=== PATIENT | male | born 1960 | race Caucasian/White ===

== ENCOUNTER 2020-07-15 15:34 | Emergency (ER) | payer OTHER ==
[~2020-07-15] VITALS: Ht 193 cm; Wt 152.0 kg
[2020-07-15] MEDS ORDERED: LISINOPRIL10 MG PO (16:02)
[2020-07-15] MEDS ORDERED: METFORMIN HCL500 M3 PO (16:02)
[2020-07-15] MEDS ORDERED: GLIPIZIDE ER2.5 MG PO (16:02)
[2020-07-15] MEDS ORDERED: CHILDREN'S ASPI81 M1 PO (16:04)
[2020-07-15] MEDS ORDERED: CPAP MISCELL (16:04)
[2020-07-15] MEDS ORDERED: EMERGEN-C 500500 MG PO (16:04)
[2020-07-15] MEDS ORDERED: TESTOSTERONE100 MG SUBQ (16:04)
[2020-07-15] MEDS ORDERED: VITAMIN D3100 MCG PO (16:05)
[2020-07-15 16:12] LABS: ABSOLUTE NEUTROPHILS 4.5 thou/uL (1.4-8.2); BASOPHILS 0.7 % (0.0-2.0); EOSINOPHILS 2.3 % (0.0-3.0); HEMATOCRIT 43.8 % (42.0-52.0); HEMOGLOBIN 15.2 gm/dL (14.0-18.0); LYMPHOCYTES 33.7 % (24.0-44.0); MCH 33.4 pg (26.0-34.0); MCHC 34.6 g/dL (28.0-37.0); MCV 96.4 fL (80.0-100.0); MONOCYTES 7.4 % (1.0-8.0); PLATELET COUNT 205 thou/uL (150-400); POLYS 55.9 % (36.0-66.0); RBC 4.54 mil/uL (4.50-6.00); RDW 13.8 % (10.5-14.5)
[2020-07-15 16:25] LABS: ANION GAP 14 mmol/L (7-16); BUN 19 mg/dL (7-18); CHLORIDE 102 mmol/L (98-107); CO2 24 mmol/L (21-32); CREATININE 1.4 mg/dL (0.7-1.3); GLUCOSE 311 mg/dL (74-106); POTASSIUM 4.2 mmol/L (3.5-5.1); SODIUM 140 mmol/L (136-145)
[2020-07-15 16:34] LABS: ALBUMIN 3.9 g/dL (3.4-5.0); DIRECT BILIRUBIN < 0.1 mg/dL (<0.1-0.2); SGOT 36 U/L (15-37); SGPT 64 U/L (30-65); TOTAL BILIRUBIN 0.4 mg/dL (0.2-1.0); TOTAL PROTEIN 7.2 g/dL (6.4-8.2); TROPONIN-I <0.06 ng/mL (<0.06)
[2020-07-15] MEDS ORDERED: TOPROL XL25 MG PO (17:37)
[2020-07-15 17:57] VITALS: BP 132/76
--- NOTE | 2020-07-16 07:11 | EKG ---
[place] [address] [facility] [place] [address] ELECTROCARDIOGRAM REPORT Name: MIRNA MOON Room [facility]: [facility] [id number] Admission: 07/15/20 Attend Phys: Discharge: 07/15/20 Date of : 56 Report #: [id number] [facility] ED Test Date: 2020-07-15 Test Time: 15:49:45 Pat Name: MIRNA MOON Department: Room: Gender: M Entry Level Electrician: RUTH : 1960 Requested By: Rut Mensah Order Number: [id number] MD: Bull Zepeda Measurements Intervals [place] Rate: 174 P: 0 CO: QRS: -6 QRSD: 86 T: -5 QT: 287 QTc: 489 Interpretive Statements Supraventricular tachycardia Minimal ST depression, inferior leads Borderline T abnormalities, inferior leads No previous ECG available for comparison Electronically Signed On 07-16-2020 7:10:55 CDT by Bull Zepeda [email or web address] <ELECTRONICALLY SIGNED> By: Bull Zepeda MD, [facility] 07/16/20 0710 1549 1549 Bull Zepeda MD, FACC /EPI
== END 2020-07-15 18:00 | disposition home or self-care (01) ==
LOC: ER 15:34
PROVIDERS: Emergency Medicine
DX: I47.1 Supraventricular tachycardia (principal); I10 Essential (primary) hypertension; E11.9 Type 2 diabetes mellitus without complications; Z79.899 Other long term (current) drug therapy

== ENCOUNTER → 2020-09-17 | Outpatient (CLI) | payer OTHER ==
[~2020-09-17] MED LIST: CHILDREN'S ASPI81 M1 PO; CPAP MISCELL; EMERGEN-C 500500 MG PO; GLIPIZIDE ER2.5 MG PO; LISINOPRIL10 MG PO; METFORMIN HCL500 M3 PO; TESTOSTERONE100 MG SUBQ; TOPROL XL25 MG PO; VITAMIN D3100 MCG PO
== END ==
LOC: SJCVCIMAG 10:55
PROVIDERS: ATTEND Internal Medicine Cardiovascular Disease
DX: I08.1 Rheumatic disorders of both mitral and tricuspid valves (principal); R00.0 Tachycardia, unspecified

== ENCOUNTER 2020-10-12 09:26 | Observation (INO) | payer OTHER ==
[2020-10-12] VITALS (9 sets, daily range): BP systolic 120–153; BP diastolic 70–89
[~2020-10-12] VITALS: Ht 193 cm; Wt 148.8 kg
[2020-10-12] MEDS ORDERED: GLIPIZIDE 10 MG10 MG PO (10:44)
[2020-10-12] MEDS ORDERED: PRINIVIL20 MG PO (10:45)
[2020-10-12 11:00] LABS: ABSOLUTE NEUTROPHILS 2.7 thou/uL (1.4-8.2); BASOPHILS 0.8 % (0.0-2.0); EOSINOPHILS 1.7 % (0.0-3.0); HEMATOCRIT 48.2 % (42.0-52.0); HEMOGLOBIN 16.4 gm/dL (14.0-18.0); MCH 32.3 pg (26.0-34.0); MCHC 33.9 g/dL (28.0-37.0); MCV 95.2 fL (80.0-100.0); MONOCYTES 6.6 % (1.0-8.0); PLATELET COUNT 175 thou/uL (150-400); POLYS 53.9 % (36.0-66.0); RBC 5.07 mil/uL (4.50-6.00); RDW 13.7 % (10.5-14.5)
[2020-10-12 11:08] LABS: CALCIUM 8.5 mg/dL (8.5-10.1)
[2020-10-12 11:13] LABS: INR 1.02; PROTIME 11.1 Seconds (10.5-12.1)
[2020-10-12 11:14] LABS: TOTAL BILIRUBIN 0.5 mg/dL (0.2-1.0); TOTAL PROTEIN 7.3 g/dL (6.4-8.2)
--- NOTE | 2020-10-12 18:14 | NUR ---
RECEIVED REPORT VIA TELEPHONE FROM MARYANNE COLE. PATIENT WILL BE ON BEDREST UNTIL 1999 THEN WILL HAVE ORDERS TO AMBULATE MULT TIMES FOR 1 HR AND ASSESS FOR BLEEDING FROM GROIN SITE. AWAITING PATIENT'S ARRIVAL ATT. PATIENT WILL BE ADMITTED TO ROOM 209.
--- NOTE | 2020-10-12 19:32 | NUR ---
PT IS AN ADMIT FROM THE TRAVELERS' AID WORKER. SPOUSE AT BEDSIDE FOR SUPPORT. GROIN SITE IS CLEAN AND DRY AND INTACT ON RIGHT SIDE. ALERT AND OREINTED X4. DENIES ANY PAIN. SLIGHT HEADACHE NOTED AT THIS TIME. HUNGRY DIABETIC DIET SNACK GIVEN AT THIS TIME. ADMISSION EXPLAIN AND PT CARE AT THIS TIME PER NURSING. CALL LIGHT WITHIN REACH IF NEEDS ASSISTANCE PER NUSING. LEGS STRAIGHT AT THIS TIME WITH INSTRUCTION PER NURSING. WILL CONTINUE TO ASSESS PER NURSING
--- NOTE | 2020-10-12 21:10 | NUR ---
RESTING IN BED GROIN SITE REMAINS CLEAN DRY AND INTACT NO HEMATOMA NOTED ON RIGHT SIDE. CALL LIGHT WITHIN REACH IF NEEDS ASSISTANCE PER NURSING
[2020-10-13 04:33] LABS: HEMATOCRIT 45.8 % (42.0-52.0); HEMOGLOBIN 15.6 gm/dL (14.0-18.0); MCH 32.5 pg (26.0-34.0); MCV 95.8 fL (80.0-100.0); RBC 4.78 mil/uL (4.50-6.00); RDW 13.5 % (10.5-14.5); WBC 6.3 thou/uL (4.0-11.0)
--- NOTE | 2020-10-13 04:34 | NUR ---
SLEPT MOST OF THE EVENING SLEEPIG PILL GIVEN SO COULD REST. GROIN SITE IS CLEAN DRY AND INTACT AT THIS TIME
[2020-10-13 04:38] LABS: CALCIUM 8.2 mg/dL (8.5-10.1); CREATININE 0.8 mg/dL (0.7-1.3); POTASSIUM 3.6 mmol/L (3.5-5.1)
[2020-10-13 05:26] VITALS: BP 120/71
[2020-10-13 08:09] VITALS: BP 140/80
[2020-10-13] MEDS ORDERED: LIPITOR 20 MG T20 M1 PO (09:00)
[2020-10-13 10:07] VITALS: BP 140/80
--- NOTE | 2020-10-13 12:25 | NUR ---
ASSESSMENT CHARTED - MEDS PER NIMA OSBORNE DIET AND FLUIDS. UP AD REILLY IN ROOM. NO CO'S OF OR NASUEA. GROIN SITE C/D/I. PT HOME THIS AM - INSTRUCTION RE HOME MEDS AND CARE GIVEN TO PATIENT - STATED UNDERSTANDING OF INSTRUCTION GIVEN. NO CO'S AT TIME OF D//C. LEFT UNIT AMBULATORY HOME WITH VIA PVT VEHICLE
--- NOTE | 2020-10-15 15:09 | CATHLAB ---
[facility] [place] [address] [address] [place] [address] INVASIVE PROCEDURE REPORT Name: MIRNA MOON Room #: 209-P [facility] Yordan MRober#: [id number] Admission: 10/12/20 Attend Phys: Ru Simon MD Discharge: 10/13/20 Date of : 56 Report #: [id number] THIS REPORT FOR: cc: ANA MATHEWS MD NO FAMILY PHYSICIAN or PCP Jer Herzog MD ~ APPROVED REPORT Study performed: 10/12/2020 16:18:31 Patient Details Patient Status: Out-Patient Room #: The patient is a 60 year-old male Event Personnel Jer Herzog Char Belt Operator, Aileen Mendoza RN RN, Mel Mcconnell RT(R)() Myah Leo Nancy RTR, COMMUNITY NUTRITION EDUCATOR Monitor Procedures Performed Art Access - R femoral artery* Left Heart Cath w/or w/o Coronaries [id number] [facility] [address] Initial Mod Sed Same Phys/QHP Gr 084192 33465 Mod Sed Same Phys/QHP Ea [id number] Hemostasis with Manual pressure Indication Syncope, Cardiomyopathy, Chest pain Risk Factors Hypercholesterolemia, Hypertension Procedure Narrative The Right Groin^ was infiltrated with 1% Lidocaine subcutaneous anesthesia. A PINNACLE 4FR Sheath #[id number] sheath was inserted into the RFA^. Coronary angiography was performed using coronary diagnostic catheters. The right coronary system was accessed and visualized with a JR4 catheter. The left coronary system was accessed and visualized with a JL4 catheter. The left ventricle was accessed and visualized with a ANGLED PIGTAIL catheter. Left ventricular/Aortic Valve gradient assessed via catheter pullback. Left ventriculogram was performed in 30 degree projection. Hemostasis was obtained with manual pressure following sheath removal without any complications. The patient tolerated the procedure well and there were no complications associated with the procedure. There was no hematoma. [facility] [address] [address] INVASIVE PROCEDURE REPORT Name: SHADIAMIRNA Room #: 209-P [facility] IN M.R.#: [id number] Admission: 10/12/20 Attend Phys: Ru Simon Discharge: 10/13/20 Date of : 56 Report #: [id number] Intraoperative Conscious Sedation Sedation start time: 17:34 Case end Time: 18:08 Fentanyl 50 mcg Versed 1 mg Fluoro Time: 2.20 minutes Dose: DAP 42767.00 cGycm2 1694 mGy Contrast Type and Amount: Omnipaque 95 ml Coronary Angiography The patient's coronary anatomy is right dominant. Diagnostic Cath Left Main The left main artery is a large-caliber vessel, patent with no flow-limiting lesions. LAD There appears to be a dual LAD system. One that supplies a septal perforators and the lateral branch that supplies a diagonal vessels. There is mild plaquing in the mid segments of both vessels. Diagonal 1 There is a small to moderate sized caliber vessel, patent with no flow-limiting lesions. Circumflex The left circumflex artery is a moderate-sized caliber vessel with mild disease in the proximal distal segments, 20%. OM1 This has an early takeoff from the left circumflex artery, patent with no flow-limiting lesions. OM2 There is a moderate-sized caliber vessel, patent with no flow-limiting lesions. OM3 There is a small to moderate sized caliber vessel, patent with no flow-limiting lesions. Right Coronary The RCA is a dominant vessel, tortuous in its course. There is mild to moderate disease in the midsegment, 30 to 40%. R PDA There is a small to moderate sized caliber vessel, patent with no flow-limiting lesions. RPLV There is a small to moderate sized caliber vessel, patent with no flow-limiting lesions. Left Ventriculography The left ventricle is normal in size with Lownormal contractility. The left ventricular ejection fraction is estimated to be 50%. Hemodynamics The aortic pressure is 139/78 mmHg with a mean of 105 mmHg. The left ventricular pressure is 129/7 mmHg with a mean of mmHg. The left [facility] [address] [place] [address] INVASIVE PROCEDURE REPORT Name: MIRNA MOON Room #: 209-P [facility] IN M.R.#: [id number] Admission: 10/12/20 Attend Phys: Ru Simon Discharge: 10/13/20 Date of : 56 Report #: [id number] ventricular end diastolic pressure is 25 mmHg. Conclusion 1. There is mild disease in the LAD and left circumflex arteries. 2. The RCA is a dominant vessel, with mild to moderate stenosis in the midsegment. 3. The LV systolic function is lownormal. 4. Recommend aggressive risk factor management. <ELECTRONICALLY SIGNED> By: Jer Herzog MD 10/15/20 1509 1509 1509 Jer Herzog MD /INF
== END 2020-10-13 10:35 | disposition home or self-care (01) ==
LOC: CATH 09:26 → 2N 19:13
PROVIDERS: Internal Medicine Cardiovascular Disease; ADMIT Internal Medicine Cardiovascular Disease; ATTEND Internal Medicine Cardiovascular Disease
DX: I25.10 Atherosclerotic heart disease of native coronary artery without angina pectoris (principal); R55 Syncope and collapse; E78.5 Hyperlipidemia, unspecified; I47.1 Supraventricular tachycardia; E11.9 Type 2 diabetes mellitus without complications; I10 Essential (primary) hypertension; Z79.82 Long term (current) use of aspirin; Z79.84 Long term (current) use of oral hypoglycemic drugs; Z79.899 Other long term (current) drug therapy
CPT/HCPCS: 62110; 62900

== ENCOUNTER → 2020-12-07 | Outpatient (CLI) | payer OTHER ==
[~2020-12-07] VITALS: Ht 193 cm; Wt 145.1 kg
[~2020-12-07] MED LIST changes: +GLIPIZIDE 10 MG10 MG PO; +LIPITOR 20 MG T20 M1 PO; +PRINIVIL20 MG PO; +SUPER THERAVIT1 EACH PO
[2020-12-07 07:37] LABS: ABSOLUTE NEUTROPHILS 5.4 thou/uL (1.4-8.2); BASOPHILS 0.5 % (0.0-2.0); EOSINOPHILS 1.7 % (0.0-3.0); HEMATOCRIT 45.5 % (42.0-52.0); HEMOGLOBIN 15.5 gm/dL (14.0-18.0); LYMPHOCYTES 22.3 % (24.0-44.0); MCH 32.3 pg (26.0-34.0); MCV 95.1 fL (80.0-100.0); MONOCYTES 7.2 % (1.0-8.0); PLATELET COUNT 162 thou/uL (150-400); POLYS 68.3 % (36.0-66.0); RBC 4.78 mil/uL (4.50-6.00)
[2020-12-07 07:47] LABS: CALCIUM 8.4 mg/dL (8.5-10.1)
[2020-12-07 07:52] LABS: APTT 29.1 Seconds (24.5-32.8); INR 1.05; PROTIME 11.4 Seconds (10.5-12.1)
[2020-12-07 07:55] LABS: ALBUMIN 3.7 g/dL (3.4-5.0); TOTAL BILIRUBIN 0.7 mg/dL (0.2-1.0); TOTAL PROTEIN 7.2 g/dL (6.4-8.2)
--- NOTE | 2020-12-11 12:38 | P ---
[facility] [place] [address] [place] [address] PROCEDURE REPORT Name: MIRNA MOON Room #: REG PEENLOPE Valladares#: [id number] Admission: 12/07/20 Attend Phys: Ru Simon MD Discharge: Date of : 56 Report #: [id number] THIS REPORT FOR: cc: ANA MATHEWS MD NO FAMILY PHYSICIAN or PCP Ru Simon MD ~ DATE OF SERVICE: 12/07/2020 SVT ABLATION PREOPERATIVE DIAGNOSIS: Supraventricular tachycardia. POSTOPERATIVE DIAGNOSIS: Typical atrioventricular jessica reentrant tachycardia. PROCEDURES PERFORMED: 1. SVT ablation -- CPT code 08605. 2. EP with left atrial pacing and recording, CPT code 89023. 3. 3D mapping, CPT code 41400. HISTORY: The patient is a 60-year-old male, history of recurrent SVT, here for ablation. ANESTHESIA: The patient underwent MAC anesthesia with no anesthesia related complications. He did have an LMA placed because of some obstructive sleep apnea. DESCRIPTION OF PROCEDURE: The patient was brought to the EP laboratory in a fasting and sedated state and prepped and draped in a sterile fashion. I obtained access to the right femoral vein x4, placing an 8, 2, 6 and a 7-Ugandan short sheath using the modified Seldinger technique. Under fluoroscopy, I placed 3 quadripolar catheters at the HRA, His and RV positions and a decapolar catheter easily in the coronary sinus for left atrial pacing and recording. A basic EP study was then performed. At baseline, the patient was in sinus rhythm with sinus cycle length was 660 milliseconds, NC interval 190 milliseconds, QRS duration 90 milliseconds, QT interval 370 milliseconds, AH interval 150 milliseconds, HV interval 47 milliseconds. Next, atrial burst pacing was performed and the patient went into SVT tachycardia cycle length of 360 milliseconds with a septal VA time of 35 milliseconds. Ventricular entrainment demonstrated a VAHV response consistent with typical AV jessica reentrant tachycardia. Further atrial pacing was performed. AV block was noted at 320 milliseconds. The patient did have a long AH interval with atrial pacing suggestive of a slow pathway. Atrial ERP was noted at 240 milliseconds at a [address] cycle length. Ventricular pacing was performed and VA block was 310 milliseconds. Ventricular ERP was noted at 230 milliseconds at a [address] cycle length [facility] [address] [place] [address] PROCEDURE REPORT Name: MIRNA MOON Room #: REG [facility]#: [id number] Admission: 12/07/20 Attend Phys: Ru Simon MD Discharge: Date of : 56 Report #: [id number] with VA conduction that was both midline and decremental. SVT was easily inducible with atrial burst pacing and entrainment was performed multiple times showing a VAHV response. As such, a diagnosis of typical AV jessica reentry tachycardia was made. THREE-DIMENSIONAL MAPPING AND ABLATION: Next, I removed the HRA catheter and exchanged the 8-Ugandan short sheath for an SR0 sheath and a 4 mm [employer] Larson ablation catheter was placed in the right atrium. 3D geometry of the right atrium with specific emphasis of the His bundle cloud and the slow pathway region was created. A total of 8 ablation lesions were performed, 4 of which had nice slow junctionals, 2 had a somewhat accelerated junctionals. There was never any AV jessica compromise. Post-ablation testing was then performed. AV block was noted at 360 milliseconds and there was no evidence of a slow pathway with atrial pacing. AV jessica ERP was noted at 360 milliseconds at a [address] cycle length with no AV jessica echoes. Atrial ERP was noted at 210 milliseconds at a [address] cycle length. Ventricular pacing was performed. VA block was at 370 milliseconds and ventricular ERP was noted at 240 milliseconds at a [address] cycle length. Aggressive atrial and ventricular pacing maneuvers were performed and there was no further inducible SVT. As such, the procedure was concluded. Catheters and sheaths were pulled and hemostasis was obtained. The patient awoke neurologically and hemodynamically intact. No complications and no significant bleeding. CONCLUSIONS: 1. Successful ablation of typical AV jessica reentrant tachycardia. 2. Normal SA jessica function. 3. Normal AV jessica function. 4. Normal His-Purkinje function. 5. No other inducible arrhythmias. <ELECTRONICALLY SIGNED> By: Ru Simon MD 12/11/20 1238 0941 1119 Ru Simon MD /nt
== END | disposition home or self-care (01) ==
LOC: CATH 06:32
PROVIDERS: ATTEND Internal Medicine Cardiovascular Disease
DX: I47.1 Supraventricular tachycardia (principal); R55 Syncope and collapse; I10 Essential (primary) hypertension; E11.9 Type 2 diabetes mellitus without complications; Z85.828 Personal history of other malignant neoplasm of skin; Z98.890 Other specified postprocedural states; Z79.899 Other long term (current) drug therapy; Z82.49 Family history of ischemic heart disease and other diseases of the circulatory system; Z79.82 Long term (current) use of aspirin
CPT/HCPCS: 62110; 62900; 70005